=== PATIENT | female | born 1985 | race Caucasian/White ===

== ENCOUNTER → 2017-01-15 | Outpatient (CLI) | payer OTHER ==
[~2017-01-15] MED LIST: ATR25 PO; CITA20TA9 PO; CLC100X PO; CLON0.5T3 PO; IBUP-1050 PO
== END | disposition home or self-care (01) ==
LOC: C.LAB1850 09:54
PROVIDERS: ATTEND Obstetrics & Gynecology
DX: Z32.01 Encounter for pregnancy test, result positive (principal)

== ENCOUNTER 2017-01-22 06:55 | Emergency (ER) | payer OTHER ==
[~2017-01-22] VITALS: Ht 167.6 cm; Wt 53.5 kg
[~2017-01-22 06:55] MED LIST changes: -CLON0.5T3 PO
[2017-01-22 07:00] VITALS: TEMP 36.6; Ht 167.6 cm; Wt 53.5 kg
--- NOTE | 2017-01-22 07:30 | DIAGNOSTIC IMAGING REPORT ---
RIGHT WRIST W/NAVICULAR MIN 3 VIEWS CLINICAL HISTORY: Right wrist pain following fall. COMPARISON: None FINDINGS: Alignment of the right wrist is anatomic. No acute fracture is identified. Scaphoid appears intact. IMPRESSION: No acute fracture or dislocation of the right wrist. Electronically signed by: Nick Garay M.D. 01/22/2017 7:28 AM Dictated Date/Time: 01/22/2017 7:27 AM
--- NOTE | 2017-01-22 07:46 | EMERGENCY ROOM VISIT NOTE ---
ED Visit Note First contact with patient: 07:04 CHIEF COMPLAINT: Wrist injury HISTORY OF PRESENT ILLNESS: This 31-year-old female patient presents to the emergency department ambulatory complaining of pain in the wrist after falling off a hover board yesterday evening. The patient states that she fell onto an outstretched right wrist. The patient is able to move their wrist, but states it is painful to do so. The patient states the pain is throbbing and 7/10. No laceration, no weakness. No numbness or tingling. The patient denies any other injury. The patient is able to move their fingers and elbow without difficulty. The patient has not had a previous fracture to this wrist. The patient has taken no medication for the pain. REVIEW OF SYSTEMS: A 6 system review of systems was performed with positives and pertinent negatives in the HPI. ALLERGIES: Adhesives, Latex, Morphine MEDICATIONS: Celexa, Colace, Vistaril PMH: No significant past medical history. SOCIAL HISTORY: The patient lives locally with family. PHYSICAL EXAM: Vital Signs: Reviewed Nurse's notes, vital signs stable. GENERAL : This is a 31-year-old female, in no acute distress, but appears to be in pain , well-developed, well-nourished. NEURO: Alert and oriented to person place and time. Normal sensation to light and sharp touch. MUSCULOSKELETAL: There is no deformity of the right wrist. There is tenderness and edema over lateral aspect of the right wrist. There is no snuff box tenderness. Range of motion is full. There is no tenderness of the elbow, hand or fingers. Twister In strength 5/5. Radial pulse 2+. SKIN: Normal and intact. The hand is warm and well perfused with capillary refill less than 2 seconds. RADIOGRAPHIC FINDINGS: RIGHT WRIST W/NAVICULAR MIN 3 VIEWS CLINICAL HISTORY: Right wrist pain following fall. COMPARISON: None FINDINGS: Alignment of the right wrist is anatomic. No acute fracture is identified. Scaphoid appears intact. IMPRESSION: No acute fracture or dislocation of the right wrist. EMERGENCY DEPARTMENT COURSE: I examined the patient. An X-ray of the right wrist was reviewed by myself and radiology and showed no acute fractures. A wrist lacer brace was placed on the patient. Neurovascular status rechecked and intact. Conservative measures were discussed. She will follow up with orthopedics for persistent pain. The patient verbalized understanding of my assessment and treatment plan and was discharged home in good condition. DIAGNOSIS: Right wrist injury Problem List Medical Problems: (1) Vaginal delivery Status: Resolved Current/Historical Medications Scheduled Citalopram Hydrobromide (Celexa), 20 MG PO DAILY Docusate Sodium (Colace), 100 MG PO BID Hydroxyzine (Vistaril *), 25 MG PO Q4HR PRN Scheduled PRN Ibuprofen (Advil), 200-600 MG PO Q4H PRN for Pain Allergies Coded Allergies: Adhesives (Verified Allergy, Unknown, 0, 08/24/13) Latex (Verified Allergy, Unknown, 0, 08/24/13) Morphine (Verified Adverse Reaction, Mild, VOMITING, 08/24/13) Vital Signs Date Time Temp Pulse Resp B/P Pulse Ox O2 Delivery O2 Flow Rate FiO2 01/22/17 07:00 36.6 78 20 141/97 99 Room Air Departure Information Impression Primary Impression: Right wrist injury Dispostion Home / Self-Care Condition GOOD Referrals Sathish Quintanilla M.D. (PCP) Patient Instructions My [facility] Additional Instructions You have been treated in the Emergency Department for a Wrist injury. For pain control, you can use the following [id number] medicines (if >12 yo): - Regular strength (325mg/tab) Tylenol (acetaminophen) 2 tabs every 4-6 hours as needed. Do not exceed 12 tablets in a 24 hour period. Avoid taking more than 4 grams (4000 mg) of Tylenol per day. This includes any other sources of acetaminophen you may take on a regular basis. - Regular strength (200 mg/tab) Advil (ibuprofen) 1-2 tabs every 4-6 hours as needed. Do not exceed a dose of 3200 mg per day. Follow-up with orthopedics for your primary care provider if you still have pain in 1-2 weeks. Wear the brace for the next 1-2 weeks, then as needed. Return to the Emergency Department if your current symptoms worsen despite treatment course outlined above, or if you develop any of the following symptoms : intractable pain despite aforementioned treatment course or new onset of numbness or tingling of the fingers. Problem Qualifiers Primary Impression: Right wrist injury Encounter type: initial encounter Qualified Codes: S69.91XA - Unspecified injury of right wrist, hand and finger(s), initial encounter
[2017-01-22] MEDS ORDERED: CLON0.5T3 PO (07:55)
[2017-01-22 08:02] VITALS: BP 130/94; PULSE 76; O2SAT 98
== END 2017-01-22 08:03 | disposition home or self-care (01) ==
LOC: C.EDB 06:56 → C.EDA 08:03
DX: S69.91XA Unspecified injury of right wrist, hand and finger(s), initial encounter (principal); W17.89XA Other fall from one level to another, initial encounter; Y93.89 Activity, other specified; Y99.8 Other external cause status; Z98.890 Other specified postprocedural states

== ENCOUNTER → 2017-01-22 | Outpatient (CLI) | payer OTHER ==
[2017-01-22 16:52] LABS: BASO % 0.1 %; BASO ABS # 0.01 K/uL (0-0.2); COMPLETE YES; EOS % 0.7 %; HEMATOCRIT 37.3 % (37-47); IG% 0.2 %; LYMPH % 28.2 %; LYMPH ABS # 2.34 K/uL (1.2-3.4); MEAN CELL VOLUME 90.3 fL (80-100); MEAN CORPUSCULAR HEMOGLOBIN 30.5 pg (25-34); MEAN CORPUSCULAR HGB CONC 33.8 g/dl (32-36); MEAN PLATELET VOLUME 10.5 fL (7.4-10.4); MONO % 7.1 %; NEUT % 63.7 %; PLATELET COUNT 207 K/uL (130-400); RED BLOOD COUNT 4.13 M/uL (4.2-5.4); WHITE BLOOD COUNT 8.31 K/uL (4.8-10.8)
== END | disposition home or self-care (01) ==
LOC: C.LAB1850 16:01
PROVIDERS: ATTEND Obstetrics & Gynecology
DX: R61 Generalized hyperhidrosis (principal); R23.2 Flushing

== ENCOUNTER → 2017-01-22 | Outpatient (CLI) | payer OTHER | END | disposition home or self-care (01) | LOC: C.PAPS 08:25 | PROVIDERS: ATTEND Obstetrics & Gynecology | DX: Z01.419 Encounter for gynecological examination (general) (routine) without abnormal findings (principal) ==

== ENCOUNTER 2017-04-16 10:59 | Emergency (ER) | payer OTHER ==
[~2017-04-16] VITALS: Ht 167.6 cm; Wt 51.5 kg
[~2017-04-16 10:59] MED LIST changes: -ATR25 PO; -CLC100X PO; +CLON0.5T3 PO; -IBUP-1050 PO
[2017-04-16 11:01] VITALS: TEMP 36.8; Ht 167.6 cm; Wt 51.5 kg
--- NOTE | 2017-04-16 11:28 | EMERGENCY ROOM VISIT NOTE ---
ED Visit Note First contact with patient: 11:07 CHIEF COMPLAINT: Earring in the left ear canal HISTORY OF PRESENT ILLNESS: This 31-year-old female patient presents today complaining of ear pain radiating into her face. The patient states this morning, she was cleaning her ear canals with a Q-tip, when she thought she pushed the Q-tip and a little bit far. Approximately 2 hours later, the patient was dropping her daughter off at school, and noticed her earring was not in the tragus. The patient states, she believes she lost the back of the ear ring when she pushed the Q-tip in her ear, as she was unable to find the ball which screws onto the earring. The patient describes pain in her left ear canal, radiating to the left side of her forehead and front of her face. She states she had a coworker looked at her ear this morning at work, who did see the earring in the ear canal. The patient went to urgent care, and was told they do not have the proper equipment to be able to remove the earring from the canal. She states they did not even look at her ear canal or make any attempts at removal. The patient describes the earring as a long lauryn, with a flat, circular back, similar in appearance to a nail. REVIEW OF SYSTEMS:A complete 6 point review of systems was reviewed with the patient with pertinent positives and negatives as per history of present illness. All else were negative. PMH: Anxiety, depression MEDS: Celexa, Klonopin ALLERGIES: Morphine, latex SOCIAL HISTORY: The patient lives locally. She admits to smoking one pack cigarettes per day. The patient denies drug or alcohol use. PHYSICAL EXAM: VITALS: Vitals are noted on the nurse's note and reviewed by myself. Vital signs stable. GENERAL: This is a 31-year-old female, in no acute distress, nondiaphoretic, well-developed well-nourished. SKIN: The skin was without rashes, erythema, edema, or bruising. There is no tenting of the skin. Capillary reflex less than 2 seconds. HEAD: Normocephalic atraumatic. EARS: There is an earring lodged in the left ear canal, which does not appear to be through the TM. This was removed without difficulty, and on further inspection, external auditory canals clear, tympanic membranes pearly carpenter without erythema, rupture, or effusion bilaterally. EMERGENCY DEPARTMENT COURSE: The foreign body was removed with forceps without complication. Exam of the ear afterwards shows that there were no lacerations on the canal and no hemorrhage in the tympanic membrane which was intact and appeared normal. The patient was given discharged instructions and discharged home in good condition. DIFFERENTIAL DIAGNOSIS: Foreign body in ear canal, TM rupture, hemorrhage, infection, and others DIAGNOSIS: Foreign body in the ear canal DISCHARGE INSTRUCTIONS: Please do not ever stick anything smaller than your elbow in her ear canal. Do not use Q-tips. Please be very cautious with your earrings, as not to push them into the ear canal. Please follow up in 1-2 days with your PCP for recheck. Please return to the emergency department if he experiences worsening pain, ringing in your ears, redness, fever, chills, nausea or vomiting, or other concerning symptoms. Problem List Medical Problems: (1) Vaginal delivery Status: Resolved Current/Historical Medications Scheduled Citalopram Hydrobromide (Celexa), 30 MG PO DAILY Clonazepam (Klonopin), 0.5-1 MG PO DAILY Allergies Coded Allergies: Adhesives (Verified Allergy, Unknown, 0, 08/24/13) Latex (Verified Allergy, Unknown, 0, 08/24/13) Morphine (Verified Adverse Reaction, Mild, VOMITING, 08/24/13) Vital Signs Date Time Temp Pulse Resp B/P (MAP) Pulse Ox O2 Delivery O2 Flow Rate FiO2 04/16/17 11:32 81 18 127/91 97 04/16/17 11:01 36.8 81 18 127/91 97 Room Air Departure Information Impression Primary Impression: Acute foreign body of left ear canal Dispostion Home / Self-Care Condition GOOD Referrals Sathish Quintanilla M.D. (PCP) Patient Instructions ED Foreign Body Ear Canal, My [facility] Additional Instructions Please do not ever stick anything smaller than your elbow in her ear canal. Do not use Q-tips. Please be very cautious with your earrings, as not to push them into the ear canal. Please follow up in 1-2 days with your PCP for recheck. Please return to the emergency department if he experiences worsening pain, ringing in your ears, redness, fever, chills, nausea or vomiting, or other concerning symptoms. Problem Qualifiers Primary Impression: Acute foreign body of left ear canal Encounter type: initial encounter Qualified Codes: T16.2XXA - Foreign body in left ear, initial encounter
[2017-04-16 11:32] VITALS: BP 127/91; PULSE 81; O2SAT 97
== END 2017-04-16 11:33 | disposition home or self-care (01) ==
LOC: C.EDB 11:00 → C.EDD 11:33
DX: S00.452A Superficial foreign body of left ear, initial encounter (principal); X58.XXXA Exposure to other specified factors, initial encounter; F41.9 Anxiety disorder, unspecified; F32.9 Major depressive disorder, single episode, unspecified; F17.210 Nicotine dependence, cigarettes, uncomplicated; Z79.899 Other long term (current) drug therapy

== ENCOUNTER 2017-11-02 09:56 | Emergency (ER) | payer OTHER ==
[~2017-11-02] VITALS: Ht 170.2 cm; Wt 54.7 kg
[2017-11-02 10:00] VITALS: TEMP 36.9; Ht 170.2 cm; Wt 54.7 kg
[2017-11-02 10:22] LABS: BASO % 0.3 %; BASO ABS # 0.02 K/uL (0-0.2); EOS % 0.4 %; EOS ABS # 0.03 K/uL (0-0.5); HEMATOCRIT 41.8 % (37-47); HEMOGLOBIN 14.6 g/dL (12.0-16.0); IG# 0.01 K/uL (0.00-0.02); LYMPH % 26.8 %; LYMPH ABS # 1.94 K/uL (1.2-3.4); MEAN CELL VOLUME 89.7 fL (80-100); MEAN CORPUSCULAR HEMOGLOBIN 31.3 pg (25-34); MEAN CORPUSCULAR HGB CONC 34.9 g/dl (32-36); MEAN PLATELET VOLUME 9.8 fL (7.4-10.4); MONO % 6.1 %; MONO ABS # 0.44 K/uL (0.11-0.59); NEUT % 66.3 %; NEUT ABS # 4.81 K/uL (1.4-6.5); PLATELET COUNT 227 K/uL (130-400); RED CELL DISTRIBUTION WIDTH CV 12.5 % (11.5-14.5); RED CELL DISTRIBUTION WIDTH SD 40.7 fL (36.4-46.3); WHITE BLOOD COUNT 7.25 K/uL (4.8-10.8)
[2017-11-02 10:29] LABS: INR 1.1 (0.9-1.1); PTT PATIENT 25.4 SECONDS (21.0-31.0)
[2017-11-02 10:40] LABS: ALT/SGPT 16 U/L (12-78); AST/SGOT 10 U/L (15-37); BLOOD UREA NITROGEN 9 mg/dl (7-18); CALCIUM 8.8 mg/dl (8.5-10.1); CARBON DIOXIDE 29 mmol/L (21-32); CREATININE 0.89 mg/dl (0.60-1.20); GLUCOSE 81 mg/dl (70-99); LIPASE 147 U/L (73-393); POTASSIUM 3.2 mmol/L (3.5-5.1); SODIUM 138 mmol/L (136-145)
[2017-11-02 10:46] LABS: ALKALINE PHOSPHATASE 47 U/L (45-117); TOTAL PROTEIN 7.7 gm/dl (6.4-8.2)
--- NOTE | 2017-11-02 10:46 | DIAGNOSTIC IMAGING REPORT ---
CHEST ONE VIEW PORTABLE CLINICAL HISTORY: 32 years-old Female presenting with ABDOMINAL PAIN/GI. TECHNIQUE: Portable upright AP view of the chest was obtained. COMPARISON: 10/03/2010. FINDINGS: Cardiomediastinal silhouette normal. Lungs and pleural spaces clear. Osseous structures normal. Upper abdomen normal. IMPRESSION: 1. No acute cardiopulmonary disease. Electronically signed by: Jose Srinivasan M.D. 11/02/2017 10:44 AM Dictated Date/Time: 11/02/2017 10:44 AM
--- NOTE | 2017-11-02 10:48 | DIAGNOSTIC IMAGING REPORT ---
KUB CLINICAL HISTORY: 32 years-old Female presenting with ruq pain. TECHNIQUE: Single supine view of the abdomen was obtained. COMPARISON: None. FINDINGS: Nonobstructive bowel gas pattern. No gross pneumoperitoneum. Allowing for bowel gas and stool, no calcifications to suggest nephrolithiasis. Multiple pelvic phleboliths. Osseous structures normal. Lung bases clear. IMPRESSION: 1. No acute intra-abdominal pathology. Electronically signed by: Jose Srinivasan M.D. 11/02/2017 10:46 AM Dictated Date/Time: 11/02/2017 10:45 AM
--- NOTE | 2017-11-02 11:09 | EMERGENCY ROOM VISIT NOTE ---
History Report prepared by Maribell: Nancy Santana Under the Supervision of: Dr. Dave Buckner D.O. First contact with patient: 10:07 Chief Complaint: CHEST PAIN Stated Complaint: CHEST PAIN History of Present Illness The patient is a 32 year old female who presents to the Emergency Room with complaints of chest pain beginning a couple days ago. The patient states her pain worsens with breathing and moving. The patient reports a cough. She states she was sick with the flu a two months ago where she had a fever and cough. She notes a lump on her right chest which she never noticed before today. The patient denies any back pain, shortness of breath, urinary symptoms, swelling in her legs, recent surgeries, recent trauma, or recent traveling. The patient went to a walk in clinic this morning and was referred to come to the ED. The patient is currently on her menstrual period. The patient denies any chance of and denies any control use. She denies any history of blood clots. The patient has a history of a tubal ligation. Source of History: patient Onset: a couple days ago Position: chest Quality: other (pain) Timing: constant Modifying Factors (Worsening): breathing, movement Associated Symptoms: + cough, + chest pain, No SOB, No back pain, No urinary symptoms Review of Systems See HPI for pertinent positives & negatives. A total of 10 systems reviewed and were otherwise negative. Past Medical & Surgical Medical Problems: (1) Vaginal delivery Surgical Problems: (1) H/O tubal ligation Family History Cancer Social History Smoking Status: Current Every Day Smoker Marital Status: Housing Status: lives with family Current/Historical Medications Scheduled Albuterol Hfa (Ventolin Hfa), 1 PUFF INH Q4 Citalopram Hydrobromide (Celexa), 30 MG PO HS Clonazepam (Klonopin), 0.5-1 MG PO HS Scheduled PRN Oxycodone Immediate Rel Tab (Roxicodone Ir), 1-2 TAB PO Q4H PRN for Severe Pain Allergies Coded Allergies: Adhesives (Verified Allergy, Unknown, 0, 11/02/17) Latex (Verified Allergy, Unknown, 0, 11/02/17) Morphine (Verified Adverse Reaction, Mild, VOMITING, 11/02/17) Physical Exam Vital Signs Date Time Temp Pulse Resp B/P (MAP) Pulse Ox O2 Delivery O2 Flow Rate FiO2 3/3/18 11:58 68 20 136/85 97 Room Air 11/02/17 10:09 75 18 137/102 100 Room Air 11/02/17 10:06 84 11/02/17 10:04 99 Room Air 11/02/17 10:00 36.9 80 17 157/114 94 Room Air Physical Exam GENERAL: Patient is awake, alert, and in no acute distress. Patient is somewhat anxious and uncomfortable appearing. EYES: The conjunctivae are clear. The pupils are round and reactive. EARS, NOSE, MOUTH AND THROAT: The nose is without any evidence of any deformity. Mucous membranes are moist tongue is midline NECK: The neck is nontender and supple. RESPIRATORY: Normal respiratory effort is noted there is no evidence of wheezing rhonchi or rales CARDIOVASCULAR: Regular rate and rhythm noted there no murmurs rubs or gallops normal S1 normal S2 GASTROINTESTINAL: The abdomen is soft. Bowel sounds are present in all quadrants. RUQ tenderness to palpation may also be due to the patients lower chest tenderness MUSCULOSKELETAL/EXTREMITIES: Significant right side chest wall tenderness to palpation. There is no evidence of gross deformity full range of motion is noted in the hips and shoulders SKIN: Small subcutaneous nodule or density in upper outer quadrant of right chest, freely movable. There is no obvious evidence of any rash. There are no petechiae, pallor or cyanosis noted. NEUROLOGIC: Patient is awake alert and oriented x3 Medical Decision & Procedures ER Provider Diagnostic Interpretation: Radiology results as stated below per my review and radiologist interpretation: KUB FINDINGS: Nonobstructive bowel gas pattern. No gross pneumoperitoneum. Allowing for bowel gas and stool, no calcifications to suggest nephrolithiasis. Multiple pelvic phleboliths. Osseous structures normal. Lung bases clear. IMPRESSION: 1. No acute intra-abdominal pathology. Electronically signed by: Jose Srinivasan M.D. CHEST ONE VIEW PORTABLE FINDINGS: Cardiomediastinal silhouette normal. Lungs and pleural spaces clear. Osseous structures normal. Upper abdomen normal. IMPRESSION: 1. No acute cardiopulmonary disease. Electronically signed by: Jose Srinivasan M.D. Laboratory Results 11/02/17 10:01 Red Blood Count 4.66, Mean Corpuscular Volume 89.7, Mean Corpuscular Hemoglobin 31.3, Mean Corpuscular Hemoglobin Concent 34.9, Mean Platelet Volume 9.8, Neutrophils (%) (Auto) 66.3, Lymphocytes (%) (Auto) 26.8, Monocytes (%) (Auto) 6.1, Eosinophils (%) (Auto) 0.4, Basophils (%) (Auto) 0.3, Neutrophils # (Auto) 4.81, Lymphocytes # (Auto) 1.94, Monocytes # (Auto) 0.44, Eosinophils # (Auto) 0.03, Basophils # (Auto) 0.02 11/02/17 10:01 Test 11/02/17 10:01 11/02/17 10:15 11/02/17 11:00 White Blood Count 7.25 K/uL (4.8-10.8) Red Blood Count 4.66 M/uL (4.2-5.4) Hemoglobin 14.6 g/dL (12.0-16.0) Hematocrit 41.8 % (37-47) Mean Corpuscular Volume 89.7 fL (80-100) Mean Corpuscular Hemoglobin 31.3 pg (25-34) Mean Corpuscular Hemoglobin Concent 34.9 g/dl (32-36) Platelet Count 227 K/uL (130-400) Mean Platelet Volume 9.8 fL (7.4-10.4) Neutrophils (%) (Auto) 66.3 % Lymphocytes (%) (Auto) 26.8 % Monocytes (%) (Auto) 6.1 % Eosinophils (%) (Auto) 0.4 % Basophils (%) (Auto) 0.3 % Neutrophils # (Auto) 4.81 K/uL (1.4-6.5) Lymphocytes # (Auto) 1.94 K/uL (1.2-3.4) Monocytes # (Auto) 0.44 K/uL (0.11-0.59) Eosinophils # (Auto) 0.03 K/uL (0-0.5) Basophils # (Auto) 0.02 K/uL (0-0.2) RDW Standard Deviation 40.7 fL (36.4-46.3) RDW Coefficient of Variation 12.5 % (11.5-14.5) Immature Granulocyte % (Auto) 0.1 % Immature Granulocyte # (Auto) 0.01 K/uL (0.00-0.02) Prothrombin Time 11.7 SECONDS (9.0-12.0) Prothromb Time International Ratio 1.1 (0.9-1.1) Activated Partial Thromboplast Time 25.4 SECONDS (21.0-31.0) Partial Thromboplastin Ratio 1.0 Anion Gap 4.0 mmol/L (3-11) Est Creatinine Clear Calc Drug Dose 78.4 ml/min Estimated GFR () 99.4 Estimated GFR (Non- 85.8 BUN/Creatinine Ratio 10.2 (10-20) Calcium Level 8.8 mg/dl (8.5-10.1) Total Bilirubin 1.0 mg/dl (0.2-1) Direct Bilirubin 0.2 mg/dl (0-0.2) Aspartate Amino Transf (AST/SGOT) 10 U/L (15-37) Alanine Aminotransferase (ALT/SGPT) 16 U/L (12-78) Alkaline Phosphatase 47 U/L (45-117) Troponin I < 0.015 ng/ml (0-0.045) Total Protein 7.7 gm/dl (6.4-8.2) Albumin 4.0 gm/dl (3.4-5.0) Lipase 147 U/L (73-393) Human Chorionic Gonadotropin, Qual NEG (NEG) Bedside D-Dimer 221 ng/mlFEU (0-450) Urine Color YELLOW Urine Appearance CLEAR (CLEAR) Urine pH 7.0 (4.5-7.5) Urine Specific [place] 1.006 (1.000-1.030) Urine Protein NEG (NEG) Urine Glucose (UA) NEG (NEG) Urine Ketones NEG (NEG) Urine Occult Blood NEG (NEG) Urine Nitrite NEG (NEG) Urine Bilirubin NEG (NEG) Urine Urobilinogen NEG (NEG) Urine Leukocyte Esterase NEG (NEG) Laboratory results per my review. ECG Per My Interpretation Indication: chest pain Rate (beats per minute): 81 Rhythm: sinus rhythm Findings: ST depression (Inferior and lateral), other (no PVC) Comparison ECG Date: 10/04/10 Change: changes are new. ED Course 1010: The patient was evaluated in room A2. A complete history and physical examination were performed. 1153: The patient does not want to stay in the ED for further testing or the ultrasound. 1208: Upon reevaluation, the patient is resting comfortably. I discussed the results and treatment plan with her. She verbalized agreement of the treatment plan. The patient was discharged home. Medical Decision Differential diagnosis: Etiologies such as cardiac ischemia, aortic dissection, pulmonary embolism, pneumonia, pneumothorax, musculoskeletal, infections, pericarditis, myocarditis , esophageal rupture, gastrointestinal, as well as others were entertained. Nursing notes reviewed. The patient is a 32-year-old female who presented to the emergency department for an evaluation of pleuritic right-sided pain. She states that she had an upper respiratory tract infection recently and was coughing a lot but did not feel that the symptoms started until recently. The patient's pain was reproducible and appear to be pleuritic in nature. Her d-dimer was negative. I discussed patient's laboratory and radiographic studies with her. She did not wish to have any pain medication. She also did not want to have an ultrasound of the gallbladder but given her laboratory results I do not feel that this is indicated at this time. She was encouraged to rest and avoid any strenuous activity. She was also encouraged to continue all medications as prescribed and follow-up with her family doctor soon as possible. I also encouraged her to return to the emergency department immediately if symptoms change worsen or the need arises. Otherwise she was also encouraged to follow- up with her primary care physician for this nonspecific nodule which was subcutaneous around the right breast. Medication Reconcilliation Current Medication List: was personally reviewed by me Blood Pressure Screening Patient's blood pressure: Elevated blood pressure Blood pressure disposition: Elevated BP felt to be situational Impression Primary Impression: Right-sided chest pain Additional Impressions: Pleurisy Breast mass Scribe Attestation The scribe's documentation has been prepared under my direction and personally reviewed by me in its entirety. I confirm that the note above accurately reflects all work, treatment, procedures, and medical decision making performed by me. Departure Information Dispostion Home / Self-Care Prescriptions Oxycodone Immediate Rel Tab (ROXICODONE IR) 5 Mg Tab 1-2 TAB PO Q4H Y for Severe Pain, #24 TAB Prov: Dave Buckner, DO 11/02/17 Albuterol Hfa (VENTOLIN HFA) 200 Puffs/94692 Mcg Aers 1 PUFF INH Q4, #1 INHALER Prov: Dave Buckner, DO 11/02/17 Referrals Sathish Quintanilla M.D. (PCP) Forms Call Back Authorization, HOME CARE DOCUMENTATION FORM, IMPORTANT VISIT INFORMATION Patient Instructions My [facility] Additional Instructions Continue all medications as prescribed. Rest and avoid any strenuous activity. Return to the emergency department immediately if symptoms change worsen or the need arises. I would also recommend a follow-up for the small nodule that was noted on the right side of your chest wall. This may require either a biopsy and ultrasound or mammogram to further evaluate this area. Continue using Motrin and Tylenol as directed for pain. Problem Qualifiers
[2017-11-02] MEDS ORDERED: OXYC1TAB3 PO (11:57)
[2017-11-02] MEDS ORDERED: VNTHFA/IN INH (11:57)
[2017-11-02 11:58] VITALS: BP 136/85; PULSE 68; O2SAT 97
== END 2017-11-02 12:05 | disposition home or self-care (01) ==
LOC: C.EDB 09:57 → C.EDA 12:05
DX: R07.9 Chest pain, unspecified (principal); R09.1 Pleurisy; N63.10 Unspecified lump in the right breast, unspecified quadrant; F17.200 Nicotine dependence, unspecified, uncomplicated; Z91.048 Other nonmedicinal substance allergy status; Z91.040 Latex allergy status; Z88.6 Allergy status to analgesic agent; Z80.9 Family history of malignant neoplasm, unspecified

== ENCOUNTER → 2017-12-12 | Outpatient (CLI) | payer OTHER ==
[~2017-12-12] MED LIST changes: +OXYC1TAB3 PO; +VNTHFA/IN INH
--- NOTE | 2017-12-13 07:46 | MAMMOGRAPHY REPORT ---
UNILATERAL RIGHT DIGITAL DIAGNOSTIC MAMMOGRAM TOMOSYNTHESIS WITH CAD AND TARGETED RIGHT ULTRASOUND: CLINICAL HISTORY: The patient reports a palpable lump in her right breast which has not noticeably ch anged since September. TECHNIQUE: Breast tomosynthesis in addition to standard 2D mammography was performed. Current study was also evaluated with a Computer Aided Detection (CAD) system. Right CC and MLO 2D and tomosynthes is images were obtained. Tomosynthesis images were obtained of the implant displaced views only. COMPARISON: No prior exams were available for comparison. BREAST COMPOSITION: The tissue of the right breast is extremely dense, which lowers the sensitivity of mammography. FINDINGS: A triangle marker verduzco the site of the palpable lump in the right upper outer quadrant. T here are no suspicious masses or other suspicious mammographic abnormalities seen at the site of the marker. The remainder of the right breast demonstrates no suspicious masses, calcifications, or area s of architectural distortion. A saline implant appears intact. Targeted ultrasound was performed of the area of the palpable lump pointed out by the patient, in the right breast at approximately 11:00 centered around 7 cm from the nipple. Sonographically normal ti ssue is seen in this region, without evidence of a mass or other suspicious sonographic abnormality. IMPRESSION: ACR BI-RADS CATEGORY 2: BENIGN, TARGETED ULTRASOUND ACR BI-RADS CATEGORY 2: BENIGN No suspicious mammographic or sonographic abnormality at the site of the palpable lump in the right 1 1:00 breast pointed out by the patient. There is no mammographic or targeted sonographic evidence of malignancy. Recommend clinical follow-up for the palpable right breast lump, and recommend routine bilateral screening mammograms starting at the age of 40 unless otherwise clinically indicated. The patient has been verbally notified of the results. Approximately 10% of breast cancers are not detected with mammography. A negative mammographic report should not delay biopsy if a clinically suggestive mass is present. Blanca Sexton M.D. ah/:12/12/2017 11:40:15 Black Top Raker: Kayleigh ARCINIEGA)(Vick), [facility] letter sent: Normal 1/2 BI-RADS Code: ACR BI-RADS Category 2: Benign Ultrasound BI-RADS: ACR BI-RADS Category 2: Benign
== END | disposition home or self-care (01) ==
LOC: C.MAMM 11:08
PROVIDERS: ATTEND Physician Assistant Medical
DX: N63.11 Unspecified lump in the right breast, upper outer quadrant (principal); Z98.82 Breast implant status